=== PATIENT | female | born 2005 ===

== ENCOUNTER → 2024-06-07 | Outpatient (CLI) | payer OTHER ==
[2024-06-07 19:51] LABS: Bacterial Vaginosis PCR Negative (NEGATIVE); Candida glabrata-krusei, PCR NOT DETECTED (NOT DETECT)
[2024-06-07 20:43] LABS: Candida Group, PCR DETECTED (NOT DETECT)
== END ==
LOC: LAB 15:06 → LAB SHORT 15:06
PROVIDERS: Advanced Practice Midwife
DX: N76.0 Acute vaginitis (principal)
CPT/HCPCS: 81515; G0123

== ENCOUNTER 2025-01-17 17:42 | Emergency (ER) | payer OTHER ==
[~2025-01-17] VITALS: Ht 157.5 cm; Wt 70.3 kg
[2025-01-17 18:09] LABS: BASOPHILS ABSOLUTE AUTO 0.03 K/mm3 (0.00-0.23); BASOPHILS PERCENT AUTO 0 % (0-2); EOSINOPHILS ABSOLUTE AUTO 0.14 K/mm3 (0.00-0.68); EOSINOPHILS PERCENT AUTO 2 % (0-6); Hematocrit 36.7 % (33.0-51.0); Hemoglobin 12.7 g/dL (11.5-16.0); IMMATURE GRAN ABSOLUTE AUTO 0.01 K/mm3 (0.00-0.10); IMMATURE GRAN PERCENT AUTO 0 % (0-1); LYMPHOCYTES ABSOLUTE AUTO 2.69 K/mm3 (0.84-5.20); LYMPHOCYTES PERCENT AUTO 33 % (21-46); MONOCYTES ABSOLUTE AUTO 0.61 K/mm3 (0.16-1.47); MONOCYTES PERCENT AUTO 8 % (4-13); Mean Corpuscular HGB Conc 34.6 g/dL (31.5-36.5); Mean Corpuscular Volume 87 fL (80-100); NEUTROPHILS ABSOLUTE AUTO 4.68 K/mm3 (1.96-9.15); NEUTROPHILS PERCENT AUTO 57 % (41-73); NRBC ABSOLUTE 0.00 K/mm3 (0.00-0.02); NRBC Auto 0.0 /100 WBC (0.0-0.2); Platelet Count 226 K/mm3 (150-400); RDW Coefficient Variation 12.3 % (11.7-14.2); RDW Standard Deviation 38.9 fL (35.1-46.3)
[2025-01-17 18:34] LABS: Alanine Aminotransfer (ALT/SGP 30.0 U/L (12-78); Albumin, Blood 4.1 g/dL (3.4-5.0); Albumin/Globulin Ratio 1.2 (0.8-1.8); Anion Gap 9.0 mmol/L (3-11); Aspartate Aminotrans (AST/SGOT 12.0 U/L (12-37); Bilirubin, Total 0.5 mg/dL (0.1-1.0); Blood Urea Nitrogen 8.0 mg/dL (8-24); CO2, Blood 25.0 mmol/L (21-32); Calcium, Blood 9.2 mg/dL (8.5-10.1); Chloride, Blood 103.0 mmol/L (98-108); Creatinine, Blood 0.62 mg/dL (0.40-1.00); Globulin, Blood 3.5 g/dL (2.2-4.0); Glucose, Blood 90.0 mg/dL (70-99); Potassium, Blood 3.3 mmol/L (3.5-5.5); Sodium, Blood 134.0 mmol/L (136-145); Total Protein, Blood 7.6 g/dL (6.4-8.2)
[2025-01-17 19:08] LABS: Source, Urine Clean Catch
[2025-01-17 19:11] LABS: Bilirubin, Urine Neg (Neg); Glucose Qualitative, Urine Neg (Neg); Ketones, Urine Neg (Neg); Leukocyte Esterase, Urine Neg (Neg); Protein, Urine Neg (Neg); Specific Gravity, Urine 1.015 (1.003-1.022); Urobilinogen, Urine NORM (Normal)
[2025-01-17 19:23] LABS: Color, Urine Pale Yellow (P-Yellow)
[2025-01-17] MEDS ORDERED: Potassium Chloride 10 Meq Tablet SA PO ONE (20:40)
[2025-01-17 20:50] LABS: Thyroid Stimulating Hormone 2.59 uIU/mL (0.360-4.800)
== END 2025-01-17 21:26 | disposition home or self-care (01) ==
LOC: ER 17:42
PROVIDERS: Student in an Organized Health Care Education/Training Program
DX: O02.1 Missed abortion (principal); O08.5 Metabolic disorders following an ectopic and molar pregnancy; E87.6 Hypokalemia; Z88.0 Allergy status to penicillin
CPT/HCPCS: 76801; 76817; 80053; 81003; 83690; 83880; 84439; 84443; 84702; 85025; 99284-25; A9270

== ENCOUNTER → 2025-01-20 | Outpatient (CLI) | payer OTHER | LOC: LAB SHORT 19:54 → LAB 19:54 | DX: O03.9 Complete or unspecified spontaneous abortion without complication (principal) | CPT/HCPCS: 84702; 86850; 86900; 86901 ==

== ENCOUNTER 2025-01-30 18:52 | Observation (INO) | payer OTHER ==
[~2025-01-30] VITALS: Ht 157.5 cm; Wt 69.0 kg
[2025-01-30] MEDS ORDERED: NS 1,000 ML IV SCH (19:35)
[2025-01-30] MEDS ORDERED: Ondansetron HCl 2 MG / ML 2ML Vial IV ONE (19:35)
[2025-01-30 19:39] LABS: BASOPHILS ABSOLUTE AUTO 0.02 K/mm3 (0.00-0.23); BASOPHILS PERCENT AUTO 0 % (0-2); EOSINOPHILS ABSOLUTE AUTO 0.03 K/mm3 (0.00-0.68); EOSINOPHILS PERCENT AUTO 0 % (0-6); Hematocrit 31.9 % (33.0-51.0); Hemoglobin 11.2 g/dL (11.5-16.0); IMMATURE GRAN ABSOLUTE AUTO 0.04 K/mm3 (0.00-0.10); IMMATURE GRAN PERCENT AUTO 0 % (0-1); LYMPHOCYTES ABSOLUTE AUTO 1.58 K/mm3 (0.84-5.20); LYMPHOCYTES PERCENT AUTO 12 % (21-46); MONOCYTES ABSOLUTE AUTO 0.47 K/mm3 (0.16-1.47); MONOCYTES PERCENT AUTO 4 % (4-13); Mean Corpuscular HGB Conc 35.1 g/dL (31.5-36.5); Mean Corpuscular Volume 86 fL (80-100); NEUTROPHILS ABSOLUTE AUTO 11.09 K/mm3 (1.96-9.15); NEUTROPHILS PERCENT AUTO 84 % (41-73); NRBC ABSOLUTE 0.00 K/mm3 (0.00-0.02); NRBC Auto 0.0 /100 WBC (0.0-0.2); Platelet Count 273 K/mm3 (150-400); RDW Coefficient Variation 12.2 % (11.7-14.2); RDW Standard Deviation 38.3 fL (35.1-46.3)
[2025-01-30 20:13] LABS: Alanine Aminotransfer (ALT/SGP 24.0 U/L (12-78); Albumin, Blood 3.5 g/dL (3.4-5.0); Albumin/Globulin Ratio 1.0 (0.8-1.8); Anion Gap 12.0 mmol/L (3-11); Aspartate Aminotrans (AST/SGOT 13.0 U/L (12-37); Beta HCG, Quantitative, Serum 1360.0 mIU/mL (0-3); Bilirubin, Total 0.3 mg/dL (0.1-1.0); Blood Urea Nitrogen 10.0 mg/dL (8-24); CO2, Blood 20.0 mmol/L (21-32); Calcium, Blood 9.2 mg/dL (8.5-10.1); Chloride, Blood 104.0 mmol/L (98-108); Creatinine, Blood 0.71 mg/dL (0.40-1.00); Globulin, Blood 3.4 g/dL (2.2-4.0); Glucose, Blood 150.0 mg/dL (70-99); Potassium, Blood 3.2 mmol/L (3.5-5.5); Sodium, Blood 133.0 mmol/L (136-145); Total Protein, Blood 6.9 g/dL (6.4-8.2)
[2025-01-30] MEDS ORDERED: Metoclopramide HCl 5MG / ML 2ML Vial IV PRN ×2 (22:10→23:35)
[2025-01-30] MEDS ORDERED: HYDROmorphone HCl/Pf 1MG SYR IV PRN ×2 (22:10→23:30)
[2025-01-30] MEDS ORDERED: Midazolam HCl 1MG / ML 2ML Vial ONE (22:12)
[2025-01-30] MEDS ORDERED: FentaNYL Citrate 50 MCG/ML 2 ML Injection ONE (22:12)
[2025-01-30] MEDS ORDERED: Dexamethasone Sod Phos 10 MG/ML 1ML VIAL ONE (22:14)
[2025-01-30] MEDS ORDERED: Ondansetron HCl 2 MG / ML 2ML Vial ONE (22:14)
[2025-01-30] MEDS ORDERED: Ondansetron HCl 2 MG / ML 2ML Vial IV PRN ×2 (22:15→23:25)
[2025-01-30] MEDS ORDERED: FentaNYL Citrate 50 MCG/ML 2 ML Injection IV PRN ×3 (22:15)
[2025-01-30] MEDS ORDERED: Rocuronium Bromide 10 MG/ML 5ML Injection IV ONE (22:34)
[2025-01-30] MEDS ORDERED: CeFAZolin Sodium 2,000 MG in NS 100 ML IV SCH (22:35)
[2025-01-30] MEDS ORDERED: CeFAZolin Sodium 1000 mg Vial ONE (22:38)
[2025-01-30] MEDS ORDERED: Phenylephrine HCl 100 MCG/ML-NS 10MLSYR (1MG/10ML) ONE (22:49)
[2025-01-30] MEDS ORDERED: Sugammadex Sodium 200 MG/2ML SDV (100 MG/ML) ONE (22:49)
[2025-01-30] MEDS ORDERED: Ketorolac Tromethamine 30mg Vial ONE (22:55)
[2025-01-30 23:12] VITALS: BP 109/68
[2025-01-30 23:15] VITALS: BP 97/85
[2025-01-30 23:20] VITALS: BP 116/68
[2025-01-30 23:25] VITALS: BP 111/68
[2025-01-30] MEDS ORDERED: FLU VACC TS2025-26(6MOS UP)/PF 45 MCG/0.5 ML SYRINGE IM SCH (23:30)
[2025-01-30 23:36] VITALS: BP 119/67
[2025-01-30] MEDS ORDERED: Ketorolac Tromethamine 30mg Vial IV PRN (23:45)
[2025-01-30 23:48] VITALS: BP 126/86
[2025-01-31 03:38] VITALS: BP 109/66
--- NOTE | 2025-01-31 04:49 | NUR ---
SHIFT SUMMARY FREDY WAS ALERT AND FULLY ORIENTED UPON ARRIVAL FROM PACU. PT DENIES PAIN, CHEST PRESSURE, NAUSEA, OR SOB. VSS. PT AMBULATING/ VOIDING APPROPRIATELY. LITTLE TO NO VAGINAL BLEEDING. NO ACUTE EVENTS NO NOTED CHANGES AFTER ARRIVAL.
[2025-01-31 05:37] LABS: BASOPHILS ABSOLUTE AUTO 0.00 K/mm3 (0.00-0.23); BASOPHILS PERCENT AUTO 0 % (0-2); EOSINOPHILS ABSOLUTE AUTO 0.00 K/mm3 (0.00-0.68); EOSINOPHILS PERCENT AUTO 0 % (0-6); Hematocrit 24.1 % (33.0-51.0); Hemoglobin 8.4 g/dL (11.5-16.0); IMMATURE GRAN ABSOLUTE AUTO 0.02 K/mm3 (0.00-0.10); IMMATURE GRAN PERCENT AUTO 0 % (0-1); LYMPHOCYTES ABSOLUTE AUTO 0.77 K/mm3 (0.84-5.20); LYMPHOCYTES PERCENT AUTO 9 % (21-46); MONOCYTES ABSOLUTE AUTO 0.07 K/mm3 (0.16-1.47); MONOCYTES PERCENT AUTO 1 % (4-13); Mean Corpuscular HGB Conc 34.9 g/dL (31.5-36.5); Mean Corpuscular Volume 86 fL (80-100); NEUTROPHILS ABSOLUTE AUTO 7.67 K/mm3 (1.96-9.15); NEUTROPHILS PERCENT AUTO 90 % (41-73); NRBC ABSOLUTE 0.00 K/mm3 (0.00-0.02); NRBC Auto 0.0 /100 WBC (0.0-0.2); Platelet Count 205 K/mm3 (150-400); RDW Coefficient Variation 12.1 % (11.7-14.2); RDW Standard Deviation 39.0 fL (35.1-46.3)
[2025-01-31 07:52] VITALS: BP 104/54
--- NOTE | 2025-01-31 12:28 | NUR ---
DISCHARGE SUMMARY PT ADMITTED LAST NIGHT AFTER HAVING D&C, SHE HAS HAD MINIMAL BLEEDING OVER NIGHT, NO PAIN OR NAUSEA. DISCUSSED DISCHARGE INSTRUCTIONS WITH HER INCLUDING HOME CARE, MEDICATIONS AND FOLLOW UPS WITH HER PRIMARY OB. NO QUESTIONS AT THIS TIME. PT ESCORTED OUT VIA WC TO PRIVATE AUTO TO GO HOME.
== END 2025-01-31 12:20 | disposition home or self-care (01) ==
LOC: ER 18:52 → ERHOLD 18:53 → SURS 23:50
PROVIDERS: Emergency Medicine; ADMIT Obstetrics & Gynecology
PROC: 10D18ZZ Extraction of Products of Conception, Retained, Via Natural or Artificial Opening Endoscopic (ICD-10-PCS; principal; 2025-01-30 11:30)
DX: O03.1 Delayed or excessive hemorrhage following incomplete spontaneous abortion (principal); Z88.0 Allergy status to penicillin
CPT/HCPCS: 36415; 76856; 80053; 84702; 85025; 86850; 86900; 86901; 86923; 88305; 96361-59; 96374-59; 99285-25; A9270; J0690; J1100; J1885; J2250; J2371; J2405; J2704; J3010; J7030